=== PATIENT | female | born 1970 | race Caucasian/White ===

== ENCOUNTER 2021-06-22 12:37 | Emergency (ER) | payer OTHER, SELFPAY ==
[2021-06-22 12:38] VITALS: BP 90/70; PULSE 83; RESP 16; TEMP 37.4; O2SAT 96; BMI 34.7
[2021-06-22 13:12] VITALS: BP 109/70; PULSE 82; RESP 18; TEMP 37.4; O2SAT 94
--- NOTE | 2021-06-22 13:21 | EDS_ITS ---
HPI History of Present Illness Chief Complaint: General Illness Informant: patient Narrative Narrative: 50-year-old female presents the emergency room concerned that she may have COVID-19. The patient states that on Tuesday she began to have diarrhea then progressed to body aches fatigue low-grade fevers of 100.1 and 100.2 cough. She went to urgent care and states they sent her here out of concern for pneumonia or DVT PE. Patient not experiencing any pleuritic chest pains. She has no PE risk factors. PFS PFS Medical History (Updated 06/22/21 @ 14:[address] Memo Ozuna DO) Chronic bronchitis Home Medications NK 06/22/21 [History Last Taken Unknown] albuterol sulfate 2 puff INHALATION Q6H PRN 06/22/21 [History Last Taken Unknown] Allergy/AdvReac Type Severity Reaction Status Date / Time No Known Allergies Allergy Verified 06/22/21 12:39 Social History (Updated 06/22/21 @ 13:[address] Memo Ozuna DO) Smoking Status: Never smoker substance use type: does not use ROS ROS ED Constitutional Constitutional ED: Reports chills and fever(s); Denies weight loss Eyes Eyes: Denies change in vision or diplopia ENT ENT ED: Reports sore throat; Denies ear pain or rhinorrhea Cardiovascular Cardiovascular: Denies chest pain, orthopnea, palpitations or racing heartbeat Respiratory/Chest Respiratory/Chest: Reports cough; Denies dyspnea or orthopnea Gastrointestinal Gastrointestinal: Reports diarrhea; Denies abdominal pain, nausea or vomiting Genitourinary Genitourinary ED: Denies dysuria, hematuria or urinary frequency Musculoskeletal Musculoskeletal: Reports myalgias; Denies arthralgias Integumentary Denies abscess or rash Neurologic Neurologic: Reports headache(s); Denies weakness Psychiatric Psychiatric: Denies anxiety, depression, suicidal ideation or suicidal thoughts Endocrine Endocrinology: Denies polydipsia, polyphagia or polyuria Allergic/Immunologic Allergic/Immunologic ED: Denies mouth swelling, tongue swelling or urticaria EXAM Physical Exam Const Vital Signs: 06/22/21 12:38 06/22/21 13:12 Temperature 99.3 F H 99.3 F H Temperature Source Temporal Temporal Pulse Rate 83 82 Respiratory Rate 16 18 Respiratory Effort Short of Breath Respiratory Pattern Normal Blood Pressure 90/70 109/70 Blood Pressure Mean 76 83 Pulse Ox 96 94 Oxygen Delivery Method Room Air Room Air Positive well nourished and well developed General Appearance ED: well developed HEENT Reports normocephalic, head/scalp atraumatic and moist mucous membranes Eyes PERRL and EOMs intact bilaterally Neck no lymphadenopathy, supple and no JVD Resp normal respiratory effort and clear to auscultation bilaterally Cardio regular rate, regular rhythm and no murmurs GI normal to inspection, nondistended, normoactive bowel sounds and non-tender Palpation: soft Back/Spine no CVA tenderness and normal ROM Extremity normal to inspection General Extremety ED: Negative for edema General Extremity: Negative for edema Neuro oriented x3 and CN's II-XII intact bilaterally Sensorium / Orientation: alert Motor Exam: strength 5/5 throughout Psych mental status grossly normal Mood & Affect: Negative for depressed or tearful Skin no rashes or lesions noted and no wounds MDM MDM MDM Narrative Medical decision making narrative: My interpretation of the chest x-ray is no acute process. Patient is Covid positive. She is not requiring any supplemental oxygen I think she is appropriate for discharge. Patient will be referred for monoclonal antibody treatment given her history of chronic bronchitis. Discharge Plan Triage Chief Complaint: General Illness ED Provider: Memo Ozuna Dx/Rx/DC Orders Clinical Impression: COVID-19 Instructions: Coronavirus Disease 2019 (COVID-19): Caring for Yourself or Oth ers Prescriptions: No Action albuterol sulfate 90 mcg/actuation HFA aerosol inhaler 2 puff INHALATION Q6H PRN (Reason: Shortness Of Breath Or Wheezing) RF: 0 NK RF: 0 Other Ambulatory Orders: COVID Outpatient Monoclonal Antibody Referral (Routine) Location: None Selected Ordered By: Dr. Memo Ozuna Primary Care Provider: Nisha Odonnell Referrals: Nisha Odonnell MD [Primary Care Provider] - As Needed Disposition Disposition: Home, Self Care
[2021-06-22] MEDS: Acetaminophen 500 MG Tablet 1000 MG PO (13:30)
--- NOTE | 2021-06-22 13:30 | RAD_ITS ---
HISTORY: cough EXAMINATION/TECHNIQUE: XR Chest 1 View: Portable upright AP chest x-ray COMPARISON: None FINDINGS: LINES/DEVICES: None. LUNGS: No consolidation, edema or effusion. No pneumothorax. MEDIASTINUM AND CARDIOVASCULAR STRUCTURES: Cardiac silhouette not enlarged. Central airways and mediastinal contour are unremarkable. BONES AND SOFT TISSUES: No acute bony abnormalities. RAD/Chest 1 View (Portable) IMPRESSION: No radiographic evidence of acute cardiopulmonary disease. at 1444 Reported and signed by: Keven Thacker MD Electronically Signed: Keven Thacker MD at 14:43 EDT Tel , Service support ,
[2021-06-22 14:10] VITALS: BP 103/84; PULSE 66; RESP 15; O2SAT 98
== END 2021-06-22 14:11 | disposition home or self-care (01) ==
PROVIDERS: Emergency Provider Emergency Medicine; PCP Internal Medicine
DX: U07.1 COVID-19 (principal); J42 Unspecified chronic bronchitis
CPT/HCPCS: 71045; 87426; 94760; 99284

== ENCOUNTER 2023-04-01 09:37 | Day surgery (SDC) | payer OTHER, SELFPAY ==
--- NOTE | 2023-03-29 08:29 | HP.PCM_ITS ---
History and Physical Date of Admission: 04/01/23 HPI: The patient is a 52 year old female presenting for pre-operative visit. She is scheduled for Hysteroscopy D&C and polyp resection, for thickened endometrium on pelvic US, postmenopausal bleeding, and endometrial polyp present Endometrial biopsy pathology on 04/01/23. Procedure discussed along with risks, benefits and complications. Other alternatives discussed for management. Consent form signed? Yes. ? ? PAST MEDICAL HISTORY PAST MEDICAL HISTORY Diagnosis Date ? Anxiety 05/23/2012 ? headaches ? ? ? PAST SURGICAL HISTORY PAST SURGICAL HISTORY Procedure Laterality Date ? DELIVERY ONLY ? 1996 and 1998 ? PAST SURGICAL HISTORY OF ? 12/2003 ? Bilateral lasik surgery ? ? ? CURRENT MEDICATIONS Current Outpatient Medications Medication Sig Dispense Refill ? miSOPROStol (CYTOTEC) 200 mcg tablet Insert 2 tablets vaginally night prior to endometrial biopsy and 2 tablets morning of procedure. Each dose should be in vagina for 6-8 hours. (Patient not taking: Reported on 01/25/2023) 4 tablet 0 ? albuterol HFA (PROVENTIL HFA, VENTOLIN HFA) 90 mcg/actuation inhaler inh med 2 puffs by mouth ONE TO THREE TIMES PER DAY 8 g 1 ? multivit with minerals/lutein (MULTIVITAMIN 50 PLUS ORAL) Take by mouth. (Patient not taking: Reported on 01/25/2023) ? ? ? No current facility-administered medications for this visit. ? ? ALLERGIES: Patient has no known allergies. ? PERSONAL HISTORY: SOCIAL HISTORY Social History ? Tobacco Use ? Smoking status: Former ? ? Types: Cigarettes ? ? Quit date: 10/17/1994 ? ? Years since quittin.4 ? Smokeless tobacco: Never ? Tobacco comments: ? ? Smoked in college Vaping Use ? Vaping Use: Never used Substance Use Topics ? Alcohol use: No ? Drug use: No ? FAMILY HISTORY: FAMILY HISTORY FAMILY HISTORY Problem Relation Age of Onset ? Factor 5 Leiden Father ? ? Hypertension Maternal Grandfather ? ? Heart Maternal Grandfather ? ? MD ? Cancer Paternal Grandfather ? ? Bone ? ? REVIEW OF SYMPTOMS: GENERAL: denies fevers or chills ENDOCRINOLOGY: has not been on steroids Cardiology : denies palpitations or chest pain Respiratory: denies SOB or cough Hematology: denies history of prolonged bleeding or easy bruising or VTE Allergy: Denies history of personal or family history of allergy to anesthesia ? PHYSICAL EXAMINATION: ? VITALS: Last menstrual period 04/28/2022. ? GENERAL: The patient is well nourished, well hydrated in no acute distress. , The patient is oriented to time, place, and person. NECK: Supple. No lynphadenopathy, normal thyroid, no thyromegaly. LUNGS: Clear to auscultation bilaterally. no wheezes, rhonchi or rales HEART: Regular rate and rhythm, Normal heart sounds, and No murmurs or gallops ? IMPRESSION: Postmenopausal bleeding, thickened endometrium on pelvic ultrasound, endometrial polyp present on endometrial biopsy specimen ? PLAN: The risks/benefits/alternatives and personal involved for the planned hysteroscopy, dilation and curettage and polyp resection were reviewed with the patient. Her questions were answered to her satisfaction and she desires to proceed. Consent was signed. I reviewed with her postop instructions and expectations. ? ? I have reviewed and updated past medical and surgical history, medications and allergies Assessment & Plan Assessment/Plan (1) PMB (postmenopausal bleeding): (2) Endometrial thickening on ultrasound: (3) Endometrial polyp:
[2023-04-01] VITALS (8 sets, daily range): BP systolic 100–112; BP diastolic 65–77; PULSE 44–63; RESP 16–17; TEMP 36.3–36.7; O2SAT 93–100; BMI 36.3
[2023-04-01] MEDS: Lactated Ringers 1,000 ML 15 ML IV (10:04)
[2023-04-01] MEDS: Ketorolac 30 MG/ML Syringe IV (10:05)
[2023-04-01] MEDS: Acetaminophen 500 MG Tablet 1000 MG PO (10:05)
[2023-04-01 10:26] LABS: Hemoglobin 13.5 g/dL (12.0-15.0); Mean Corp Hgb Conc 33.8 g/dL (32-36); Mean Corpuscular Hgb 29.5 pg (27.0-32.0); Mean Corpuscular Volume 87.5 fL (81-99); Mean Platelet Vol. 11.9 fl (6.2-12.0); Platelet Count 194 K/mm3 (150-450); RBC Distribution Width CV 12.6 % (11.6-14.6); RBC Distribution Width SD 40.4 fl (35.1-43.9); Red Blood Count 4.57 M/mm3 (4.2-5.4); White Blood Count 5.5 K/mm3 (4.4-11.0)
[2023-04-01 10:31] LABS: Anion Gap 6 (5-15); BUN 16 mg/dL (7-18); BUN/Creat Ratio 19.4 RATIO (10-20); Calcium,Total 9.4 mg/dL (8.5-10.1); Chloride 108 mmol/L (98-107); Creatinine, Serum 0.82 mg/dL (0.55-1.02); EST Glomerular Filtration Rate 77 mL/min (>60); Est Glom Filt Rate - Afr Amer 93 mL/min (>60); Estimated Creatinine Clearance 59.87 ml/min; Glucose 90 mg/dL (74-106); Potassium 4.2 mmol/L (3.5-5.1); Sodium Level 141 mmol/L (136-145)
[2023-04-01 10:56] LABS: hCG Titer Quant., Serum 2 mIU/mL (1-3)
--- NOTE | 2023-04-01 11:10 | EMB_PTH ---
PATIENT: JOSE LESTER LOC: [facility] [place] U#:[id number] AGE/SX: 52/F ROOM: RE04/01/[address]: Dr. Marbella Gold MD : 1970 BED: DIS: 04/01/2023 SPEC #: [id number] RECD: 04/01/23 12:51 STATUS: ZECHARIAH KENDRICK #: [id number] NATI: 04/01/23 11:[address]: Marbella Gold DEPT: SURGICAL PATHOLOGY RECD BY: Sunshine Stanley ENTERED: 04/01/23 13:44 SP TYPE: ENDOM BX/C CHARLY DR: Dr. Nisha Odonnell MD Tissues: Endometrium, NOS Procedures: Surgery Specimen Level IV HEADER OPERATION: Hysteroscopy, D & C Symphion, polyp resection PRE-OP DIAGNOSIS: Postmenopausal bleeding, endometrial thickening on US, endometrial polyp TISSUE SUBMITTED: Endometrial curettings and polyp MICROSCOPIC DIAGNOSIS Endometrial curettings and polyp: Fragments of endometrial polyp with simple cystic hyperplasia. Sun'Aq endometrium with weak proliferative change. AM:ramón 04/04/2023 MICROSCOPIC DESCRIPTION Slides are reviewed. GROSS DESCRIPTION Received in fixative is one container labeled with the patient's name and designated endometrial curettings and polyp. The specimen consists of multiple irregular fragments of grove-pink soft tissue that in aggregate measure 2.0 x 2.0 x 0.2 cm. Also present in the container is a grove-pink polyp measuring 1.5 x 0.7 x 0.4 cm. The polyp is bisected. The entire specimen is submitted in two cassettes. Cassette 2 contains the polyp. / SJ:ramón 04/01/2023 TC:1 CPT: 01478
--- NOTE | 2023-04-01 11:42 | DCINST_ITS ---
Discharge Instructions Diet Discharge Diet: No restrictions Activity May resume sexual activity in: 2 weeks Lifting Restrictions: none Dressing / Incision Call your doctor if your incision/area has: Sudden Increased Bleeding and Foul Smelling Discharge Call your doctor if you observe: Fever of 101 or Higher and Using more than 1 pad per hour (for 2 hrs in a row) Follow Up Care Please Follow Up With: Marbella Gold MD When: 2-4 weeks or as needed. Call [phone] to make an appointment or with any concerns. Test Results: Test results from this visit will be discussed in further detail at your follow- up appointment, if applicable. Discharge Plan Admission Primary Reason for Your Visit: Hysteroscopy D&C with polyp resection Attending Provider: Marbella Gold Primary Care Provider: Nisha Odonnell Discharge Orders/Prescriptions Prescriptions: New ibuprofen 600 mg tablet 600 mg PO Q6H PRN PRN (Reason: pain) 10 Days Qty: 30 1RF Continued albuterol sulfate 90 mcg/actuation HFA aerosol inhaler 2 puff INHALATION Q6H PRN (Reason: Shortness Of Breath Or Wheezing) Label Comments: inhale 2 puffs by mouth ONE TO THREE TIMES PER DAY Referrals / Follow Up: Nisha Odonnell MD [Primary Care Provider] - Disposition Disposition (needs filled in before D/C Order can be placed): Home, Self Care
[2023-04-01] MEDS: Lidocaine 1% /Epi 1:100 (20ml) 20 ML Vial (11:45)
--- NOTE | 2023-04-01 11:54 | PCM.OPRPT ---
Problems Associated Problem List Diagnoses (1) Endometrial polyp: (2) Endometrial thickening on ultrasound: (3) PMB (postmenopausal bleeding): Report of Operation Date of Procedure: 04/01/23 Pre-Operative Diagnosis: PMB, thickened endometrium on US, endometrial polyp Post-Operative Diagnosis: same Surgery/Procedure Performed:: Hysteroscopy with visual D&C and polyp resection with Symphion device Description of Surgical Findings:: 2 anterior endometrial polyps, normal vagina and cervix and otherwise atrophic normal endometrium Surgeon: Marbella Gold foreign trade teacher: None Type of Anesthesia: MAC/Supplemental/Local Anesthesiologist: Norma Paul Special Medications: none Specimen's removed: endometrial curettings and polyp Drains: none Estimated Blood Loss (mL): 10 Fluids Replaced: 1000 Description of Procedure: The patient was taken to the OR where she was prepped and draped in dorsal lithotomy position. The weighted speculum was placed in the vagina and the anterior lip of the cervix was grasped with a single-tooth tenaculum. A paracervical block was administered with 1% lidocaine with 1-100,000 epinephrine solution. The cervix was dilated serially with Hegar dilators. The Symphion hysteroscope was placed into the uterine cavity and the above findings were noted. Bilateral tubal ostia were identified. The hysteroscope was removed. The Symphion resection device was readied and inserted. The polyp was shaved out in the usual fashion. A visual D&C was then done of the endometrial cavity.. The instruments were removed from the vagina. The specimen was handed off and sent to pathology. All sponge and needle counts were correct. Vaginal sweep was performed by me. The patient was awakened and taken to the recovery room in stable condition. Calculated hysteroscopic fluid deficit is 350 cc of normal saline Grafts/Implants Used: none Procedure Start Time: 11:45 Procedure Stop Time: 11:53 Complications none Admit VTE Documentation VTE Present on Admission: No VTE Mechan Device Prophylaxis: [facility] [place]'s VTE Pharm Prophylaxis ordered?: No Reason prophylaxis not ordered:: Procedure Not Indicated
== END 2023-04-01 13:16 | disposition home or self-care (01) ==
LOC: SDC 09:41 → AC 09:42
PROVIDERS: Anesthesiology; PCP Internal Medicine; Referring Provider Obstetrics & Gynecology; Visit Provider Obstetrics & Gynecology
PROC: 0UB98ZZ Excision of Uterus, Via Natural or Artificial Opening Endoscopic (ICD-10-PCS; CPT 58558; principal; 2023-04-01 11:00)
DX: N85.01 Benign endometrial hyperplasia (principal); N95.0 Postmenopausal bleeding; J45.909 Unspecified asthma, uncomplicated; Z87.891 Personal history of nicotine dependence
CPT/HCPCS: 58558; 00952; 80048; 84702; 85027; 88305; J7120; J2405